=== PATIENT | male | born 1965 | race Two or more races ===

== ENCOUNTER 2019-03-19 21:11 | Emergency (ER) | payer SELFPAY ==
[~2019-03-19] VITALS: Ht 165.1 cm; Wt 88.5 kg
[2019-03-19] MEDS ORDERED: cloNIDine HCL 0.1 MG TAB PO ONE (21:45)
[2019-03-19 22:26] LABS: Basophils # (auto) 0.1 uL; Basophils % (auto) 0.7 % (0.0-2.0); Eosinophils # (auto) 0.1 uL; Eosinophils % (auto) 1.5 % (0.0-7.0); Hematocrit 46.5 % (41.0-53.0); Lymphocytes # (auto) 2.1 uL; Lymphocytes % (auto) 28.2 % (10.0-50.0); Mean Corpuscular Hemoglobin 29.9 pg (28.0-32.0); Mean Corpuscular Hgb Conc. 34.3 g/dL (32.0-36.0); Mean Corpuscular Volume 87.2 fL (80.0-100.0); Monocytes # (auto) 0.5 uL; Neutrophils # (auto) 4.7 uL; Neutrophils % (auto) 62.6 % (37.0-80.0); Nucleated Red Blood Cells % 0.1 %; Platelet Count (auto) 185 10^3/uL (140-450); Red Blood Cells 5.34 10^6/uL (4.5-5.90); Red Cell Distribution Width 13.9 % (11.8-14.3); White Blood Cell 7.6 10^3/uL (4.4-10.8)
[2019-03-19 22:45] LABS: Albumin 3.8 g/dL (3.4-5.0); Anion Gap 7 (5-15); BUN/Creatinine Ratio 17.4; Blood Urea Nitrogen 15 mg/dL (7-18); Calcium 8.4 mg/dL (8.5-10.1); Carbon Dioxide 28 mmol/L (21-32); Chloride 107 mmol/L (98-107); GFR African American 121 mL/min; GFR Non-African American 100 mL/min; Glucose 132 mg/dL (74-106); Magnesium 2.4 mg/dL (1.6-2.6); Potassium 3.7 mmol/L (3.5-5.1); Sodium 142 mmol/L (136-145)
[2019-03-19 22:50] LABS: Alanine Aminotransferase 26 U/L (16-61); Alkaline Phosphatase 101 U/L (45-117); Aspartate Aminotransferase 19 U/L (15-37); Bilirubin, Total 0.4 mg/dL (0.2-1.0); Total Protein 7.5 g/dL (6.4-8.2)
[2019-03-20 05:02] LABS: Urine Bacteria FEW /hpf (None Seen); Urine Blood Negative /uL (Negative); Urine Mucus FEW (None Seen); Urine Specific Gravity 1.028 (1.001-1.035); Urine WBC 2 /hpf (0 - 3)
[2019-03-20 06:00] VITALS: BP 166/88
== END 2019-03-20 07:00 | disposition home or self-care (01) ==
LOC: ER 21:14
DX: I16.0 Hypertensive urgency (principal)
CPT/HCPCS: 36415; 80053; 81001; 83735; 84484; 85025